=== PATIENT | male | born 2000 | race Caucasian/White ===

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

== ENCOUNTER 2022-05-12 08:10 | Outpatient (CLI) | payer OTHER | END 2022-05-12 08:11 | disposition home or self-care (01) | LOC: ULT 08:10 | PROVIDERS: ATTEND Student in an Organized Health Care Education/Training Program | DX: R22.2 Localized swelling, mass and lump, trunk (principal) | CPT/HCPCS: 76705 ==